=== PATIENT | male | born 1940 | race Caucasian/White ===

== ENCOUNTER 2019-06-20 17:41 | Inpatient (IN) | payer MEDICAID, MEDICARE ==
[~2019-06-20] VITALS: Ht 172.7 cm; Wt 78.5 kg
[~2019-06-20 17:41] MED LIST: AMIO200T GT; ASPI-518 GT; ATOR40TA70 GT; CLOP75TA33 GT; DOCU-150 GT; DUONEB3 ML INH; FAMO40OR2 GT; KEPPSOL GT; LOSA100T32 GT; METO25TA6 GT; PRAS10TA6 GT; PROT40 PO
[2019-06-20 20:47] LABS: HEMATOCRIT. 33.4 % (42.0-52.0); HEMOGLOBIN. 11.4 g/dL (14.0-18.0); MEAN CORPUSCULAR HEMOGLOBIN 31.1 pg (28.0-32.0); MEAN CORPUSCULAR VOLUME 91.1 fL (80.0-94.0); MEAN PLATELET VOLUME 9.4 fl (7.4-10.4); PLATELET 172 x1000/uL (130-400); RED BLOOD CELL COUNT 3.67 mill/uL (4.7-6.1); RED CELL DISTRIBUTION WIDTH 15.4 % (11.6-14.6)
[2019-06-20 20:53] LABS: CHLORIDE 105 mEq/L (98-107)
[2019-06-20 21:08] LABS: PLATELET ESTIMATE NORMAL
[2019-06-20] MEDS ORDERED: ACETAMINOPHEN 325MG TABLET PO PRN ×2 (22:15)
[2019-06-20] MEDS ORDERED: MAGNESIUM/ALUMINUM HYDROXIDE/SIMETHICONE 30ML UDC PO PRN (22:15)
[2019-06-20] MEDS ORDERED: GUAIFENESIN 200MG/10ML SUGAR FREE UDC PO PRN (22:15)
[2019-06-20] MEDS ORDERED: IPRATROPIUM/ALBUTEROL 0.5-3(2.5)MG/3ML NEB NEB PRN (22:15)
[2019-06-20] MEDS ORDERED: KETOROLAC 15MG/ML VIAL IV PRN (22:15)
[2019-06-20] MEDS ORDERED: LORAZEPAM 0.5MG TABLET PO PRN (22:15)
[2019-06-20] MEDS ORDERED: DOCUSATE SODIUM 100MG CAPSULE PO PRN (22:15)
[2019-06-20] MEDS ORDERED: ONDANSETRON HCL 4MG/2ML INJ IV PRN (22:15)
[2019-06-20] MEDS ORDERED: CLONIDINE 0.1MG TABLET PO PRN (22:15)
[2019-06-20] MEDS ORDERED: ZOLPIDEM TARTRATE 5MG TABLET PO PRN ×2 (22:15)
[2019-06-20] MEDS ORDERED: TRAMADOL 50MG TABLET PO PRN (22:15)
[2019-06-20] MEDS ORDERED: NITROGLYCERIN 0.4MG TABLET SL SL PRN (22:15)
[2019-06-20] MEDS ORDERED: DIPHENHYDRAMINE 50MG/ML VIAL IV PRN (22:15)
[2019-06-20] MEDS ORDERED: AZITHROMYCIN 500 MG in DEXT 5% WATER 250 ML IV NR (22:57)
[2019-06-20] MEDS ORDERED: KCL 20MEQ/100ML PREMIX 100 ML IV NR (23:00)
[2019-06-20 23:26] LABS: FOLIC ACID (FOLATE) SERUM 6.2 ng/mL (>5.38)
[2019-06-21] MEDS: DEXT 5%/0.9% NACL KCL 20MEQ/L 1,000 ML IV SCH ×3 (01:24→19:00)
[2019-06-21 04:15] VITALS: BP 160/91
[2019-06-21] MEDS ORDERED: TAMS-11 PO (05:22)
[2019-06-21] MEDS ORDERED: HYDR100T26 PO (05:22)
[2019-06-21] MEDS ORDERED: LABE100T5 PO (05:22)
[2019-06-21] MEDS ORDERED: MINO2.5T2 PO (05:22)
[2019-06-21] MEDS ORDERED: CEFTRIAXONE 1 G PREMIX 50 ML IV SCH (06:00)
[2019-06-21 08:00] VITALS: BP 188/72
[2019-06-21] MEDS ORDERED: METOPROLOL TARTRATE 25MG TABLET PO SCH (09:00)
[2019-06-21] MEDS ORDERED: AMIODARONE HCL 200 MG TABLET PO SCH (09:00)
[2019-06-21] MEDS ORDERED: ASCORBIC ACID 500 MG TABLET PO SCH (09:00)
[2019-06-21 10:31] LABS: BASOPHILS % 0.6 % (0.0-2.0); EOSINOPHILS % 0.2 % (0.0-5.0); HEMATOCRIT. 36.6 % (42.0-52.0); HEMOGLOBIN. 12.5 g/dL (14.0-18.0); LYMPHOCYTES % 13.9 % (20.0-50.0); MEAN CORPUSCULAR HEMOGLOBIN 31.2 pg (28.0-32.0); MEAN CORPUSCULAR VOLUME 91.4 fL (80.0-94.0); MEAN PLATELET VOLUME 9.7 fl (7.4-10.4); MONOCYTES % 11.6 % (2.0-8.0); NEUTROPHILS % 73.7 % (40.0-76.0); PLATELET 196 x1000/uL (130-400); RED CELL DISTRIBUTION WIDTH 15.5 % (11.6-14.6)
[2019-06-21 10:37] LABS: CHLORIDE 106 mEq/L (98-107)
[2019-06-21 10:43] LABS: PHOSPHORUS 2.6 mg/dL (2.5-4.9)
[2019-06-21 10:46] LABS: CREATINE KINASE 115 IU/L (39-308)
[2019-06-21 10:50] LABS: CREATINE KINASE MB FRACTION 1.4 ng/mL (0.5-3.6)
[2019-06-21] MEDS: CLOPIDOGREL 75MG TABLET PO SCH (11:47)
[2019-06-21] MEDS: PANTOPRAZOLE SODIUM 40 MG/VIAL IV SCH (11:47)
[2019-06-21] MEDS: LEVETIRACETAM 500MG TABLET PO SCH ×2 (11:48→22:35)
[2019-06-21] MEDS: ZINC SULFATE 220 MG ( 50 ) CAPSULE PO SCH (11:49)
[2019-06-21] MEDS: ENOXAPARIN 40MG/0.4ML SYR SUBCUT SCH (11:52)
[2019-06-21 12:00] VITALS: BP 163/60
[2019-06-21] MEDS ORDERED: GLUCAGON,HUMAN RECOMBINANT 1MG/VIAL IM SCH (14:00)
[2019-06-21] MEDS ORDERED: ATROPINE SULFATE 1MG/ML VIAL IV PRN (14:15)
[2019-06-21] MEDS ORDERED: KCL 20MEQ/100ML PREMIX 100 ML IV SCH (15:00)
[2019-06-21 16:00] VITALS: BP 145/66
[2019-06-21] MEDS: ASCORBIC ACID 500 MG TABLET PO SCH ×2 (18:24→22:35)
[2019-06-21] MEDS: MINOXIDIL 2.5MG TABLET PO SCH (18:25)
[2019-06-21 18:59] LABS: CREATINE KINASE MB FRACTION 2.9 ng/mL (0.5-3.6)
[2019-06-21 20:00] VITALS: BP 169/68
[2019-06-21] MEDS: AMLODIPINE 5MG TABLET PO SCH (22:35)
[2019-06-21] MEDS: ATORVASTATIN CALCIUM 40MG TABLET PO SCH (22:36)
[2019-06-22] VITALS (7 sets, daily range): BP systolic 157–191; BP diastolic 64–89
[2019-06-22] MEDS ORDERED: AZITHROMYCIN 500 MG in DEXT 5% WATER 250 ML IV SCH (01:00)
[2019-06-22] MEDS: ASCORBIC ACID 500 MG TABLET PO SCH ×4 (02:12→20:51)
[2019-06-22] MEDS: AZITHROMYCIN 250 MG in DEXT 5% WATER 250 ML IV SCH (02:13)
[2019-06-22] MEDS: DEXT 5%/0.9% NACL KCL 20MEQ/L 1,000 ML IV SCH (05:00)
[2019-06-22] MEDS: CEFTRIAXONE 1 G PREMIX 50 ML IV SCH (06:40)
[2019-06-22] MEDS: AMLODIPINE 5MG TABLET PO SCH ×2 (08:50→21:47)
[2019-06-22] MEDS: ENOXAPARIN 40MG/0.4ML SYR SUBCUT SCH (08:51)
[2019-06-22] MEDS: ZINC SULFATE 220 MG ( 50 ) CAPSULE PO SCH (08:51)
[2019-06-22] MEDS: CLOPIDOGREL 75MG TABLET PO SCH (08:51)
[2019-06-22] MEDS: PANTOPRAZOLE SODIUM 40 MG/VIAL IV SCH (08:51)
[2019-06-22] MEDS: MINOXIDIL 2.5MG TABLET PO SCH (08:51)
[2019-06-22] MEDS: LEVETIRACETAM 500MG TABLET PO SCH ×2 (08:51→20:39)
[2019-06-22 16:51] LABS: COVID-19 PCR RNA DETECTED
[2019-06-22 16:52] LABS: COVID-19 PCR RNA DETECTED
[2019-06-22] MEDS: DEXT 5%/0.45% NACL 1000ML 1,000 ML IV SCH (17:18)
[2019-06-22] MEDS: LISINOPRIL 20MG TABLET PO SCH ×2 (17:18→21:48)
[2019-06-22] MEDS: HYDROXYCHLOROQUINE SULFATE 200MG TABLET PO SCH (20:38)
[2019-06-22] MEDS: ATORVASTATIN CALCIUM 40MG TABLET PO SCH (20:51)
[2019-06-23] MEDS: AZITHROMYCIN 250 MG in DEXT 5% WATER 250 ML IV SCH (01:00)
[2019-06-23] MEDS: DEXT 5%/0.45% NACL 1000ML 1,000 ML IV SCH ×3 (02:05→15:39)
[2019-06-23] MEDS: ASCORBIC ACID 500 MG TABLET PO SCH ×4 (03:52→13:52)
[2019-06-23 04:00] VITALS: BP 175/85
[2019-06-23] MEDS: CEFTRIAXONE 1 G PREMIX 50 ML IV SCH (06:20)
[2019-06-23 08:00] VITALS: BP 181/73
[2019-06-23] MEDS: LISINOPRIL 20MG TABLET PO SCH ×2 (09:00→09:23)
[2019-06-23] MEDS: ZINC SULFATE 220 MG ( 50 ) CAPSULE PO SCH ×2 (09:00→09:23)
[2019-06-23] MEDS: AMLODIPINE 5MG TABLET PO SCH ×2 (09:00→09:26)
[2019-06-23] MEDS: LEVETIRACETAM 500MG TABLET PO SCH ×2 (09:00→09:23)
[2019-06-23] MEDS: MINOXIDIL 2.5MG TABLET PO SCH ×2 (09:00→09:23)
[2019-06-23] MEDS: CLOPIDOGREL 75MG TABLET PO SCH ×2 (09:00→09:23)
[2019-06-23] MEDS: PANTOPRAZOLE SODIUM 40 MG/VIAL IV SCH (09:22)
[2019-06-23] MEDS: HYDROXYCHLOROQUINE SULFATE 200MG TABLET PO SCH ×3 (09:23→21:37)
[2019-06-23] MEDS: ENOXAPARIN 40MG/0.4ML SYR SUBCUT SCH (09:24)
[2019-06-23] MEDS ORDERED: HYDRALAZINE 20MG/ML VIAL IV PRN (11:00)
[2019-06-23 12:00] VITALS: BP 170/65
[2019-06-23] MEDS: NITROGLYCERIN OINT 1GM/INCH UDPKT TD SCH ×2 (13:24→21:41)
[2019-06-23] MEDS: LEVETIRACETAM 500MG PREMIX 100 ML IV SCH ×2 (13:24→23:12)
[2019-06-23] MEDS ORDERED: MORPHINE SULFATE 2 MG/ML CPJ (NOT FOR IM USE) IV PRN (14:30)
[2019-06-23] MEDS ORDERED: LORAZEPAM 2MG/ML CPJ IV PRN (14:30)
[2019-06-23] MEDS ORDERED: FUROSEMIDE 40MG/4ML VIAL IVP NR (14:30)
[2019-06-23 16:00] VITALS: BP 163/64
[2019-06-23 20:53] VITALS: BP 174/73
[2019-06-23] MEDS: FAMOTIDINE 20MG/2ML VIAL IV SCH (21:40)
[2019-06-24] VITALS: BP 160/74
[2019-06-24] MEDS: AZITHROMYCIN 250 MG in DEXT 5% WATER 250 ML IV SCH (01:14)
[2019-06-24 04:00] VITALS: BP 156/64
[2019-06-24] MEDS: CEFTRIAXONE 1 G PREMIX 50 ML IV SCH (05:17)
[2019-06-24] MEDS: NITROGLYCERIN OINT 1GM/INCH UDPKT TD SCH ×2 (05:17→13:17)
[2019-06-24 08:00] VITALS: BP 137/58
[2019-06-24] MEDS: HYDROXYCHLOROQUINE SULFATE 200MG TABLET PO SCH (09:00)
[2019-06-24] MEDS: FAMOTIDINE 20MG/2ML VIAL IV SCH (09:31)
[2019-06-24] MEDS: ENOXAPARIN 40MG/0.4ML SYR SUBCUT SCH (09:32)
[2019-06-24] MEDS: LEVETIRACETAM 500MG PREMIX 100 ML IV SCH (09:39)
[2019-06-24] MEDS: DEXT 5%/0.45% NACL 1000ML 1,000 ML IV SCH (09:39)
[2019-06-24 12:00] VITALS: BP 143/50
[2019-06-24 16:00] VITALS: BP 110/41
[2019-06-25] MEDS ORDERED: CEFTRIAXONE 1,000 MG in DEXTROSE 5% WATER 50 ML IV SCH (06:00)
== END 2019-06-24 16:27 | disposition expired | DRG 137 ==
LOC: ER 17:41 → 7WST 22:05 → EDBEDREQ 22:12 → EDBEDREQTM 22:12 → ENRESERV 06-21 02:40 → 7WST 06-21 04:51
PROVIDERS: ADMIT Internal Medicine; ATTEND Internal Medicine
DX: U07.1 COVID-19 (principal); J96.01 Acute respiratory failure with hypoxia; N17.9 Acute kidney failure, unspecified; G92 Toxic encephalopathy; J12.89 Other viral pneumonia; I48.91 Unspecified atrial fibrillation; G40.909 Epilepsy, unspecified, not intractable, without status epilepticus; R13.10 Dysphagia, unspecified; I13.0 Hypertensive heart and chronic kidney disease with heart failure and stage 1 through stage 4 chronic kidney disease, or unspecified chronic kidney disease; I50.40 Unspecified combined systolic (congestive) and diastolic (congestive) heart failure; I69.351 Hemiplegia and hemiparesis following cerebral infarction affecting right dominant side; E83.51 Hypocalcemia; Z93.1 Gastrostomy status; E78.00 Pure hypercholesterolemia, unspecified; E78.5 Hyperlipidemia, unspecified; E87.6 Hypokalemia; I25.5 Ischemic cardiomyopathy; I25.10 Atherosclerotic heart disease of native coronary artery without angina pectoris; I69.320 Aphasia following cerebral infarction; N18.9 Chronic kidney disease, unspecified; R74.0 Nonspecific elevation of levels of transaminase and lactic acid dehydrogenase [LDH]; R79.89 Other specified abnormal findings of blood chemistry; Z66 Do not resuscitate; Z51.5 Encounter for palliative care; Z79.02 Long term (current) use of antithrombotics/antiplatelets; Z95.5 Presence of coronary angioplasty implant and graft; Z79.82 Long term (current) use of aspirin; Z79.899 Other long term (current) drug therapy
CPT/HCPCS: 36415; 71045; 80053; 80061; 82550; 82553; 82607; 82746; 82962; 83036; 83540; 83550; 83735; 83880; 84100; 84484; 85025; 87804; 93005; 99285; C9113; J0360; J0456; J0696; J1610; J1650; J1940; J1953; J3480; J3490; J7060